=== PATIENT | female | born 1990 | race African-American/Black ===

== ENCOUNTER 2020-08-08 09:52 | Outpatient (CLI) | payer BC, MEDICAID ==
[~2020-08-08] VITALS: Ht 162.6 cm; Wt 72.6 kg
[2020-08-08] MEDS ORDERED: PREN-55 MT (10:52)
== END 2020-08-08 13:40 | disposition home or self-care (01) ==
LOC: L&DPROCDR 09:52 → INTOOBSV 10:01 → 8 EST LDRP 10:01 → OBSVTOIN 10:01
PROVIDERS: ADMIT Obstetrics & Gynecology; ATTEND Obstetrics & Gynecology
DX: O42.92 Full-term premature rupture of membranes, unspecified as to length of time between rupture and onset of labor (principal); Z3A.40 40 weeks gestation of pregnancy
CPT/HCPCS: 59025; 76815; 76818; G0378; 99281

== ENCOUNTER 2023-03-03 19:07 | Inpatient (IN) | payer BC, MEDICAID ==
[~2023-03-03] VITALS: Ht 162.6 cm; Wt 80.7 kg
[2023-03-03] MEDS ORDERED: CARBOPROST TROMETHAMINE 250 MCG/ML AMPUL IM PRN (21:45)
[2023-03-03] MEDS ORDERED: RHO(D) IMMUNE GLOBULIN 300 MCG/SYR IM ONE (21:45)
[2023-03-03] MEDS ORDERED: LIDOCAINE HCL 1% 20ML VIAL (Pyxis) INJ INFIL SCH (21:45)
[2023-03-03] MEDS ORDERED: BUTORPHANOL TARTRATE 2 MG/ML VIAL IV PRN (21:45)
[2023-03-03] MEDS ORDERED: METHYLERGONOVINE MALEATE 0.2 MG/ML IM PRN (21:45)
[2023-03-03] MEDS ORDERED: RHO(D) IMMUNE GLOBULIN 300 MCG/SYR IM PRN (21:45)
[2023-03-03] MEDS ORDERED: NALOXONE HCL 0.4 MG/ML 1ML VIAL IM PRN (21:45)
[2023-03-03] MEDS ORDERED: MISOPROSTOL 100MCG TABLET VG SCH (21:45)
[2023-03-03 22:10] LABS: CLARITY URINE CLOUDY (CLEAR); COLOR URINE YELLOW (YELLOW); KETONES URINE NEGATIVE (NEGATIVE); LEUKOCYTE ESTERASE URINE 3+ (NEGATIVE); NITRITE URINE NEGATIVE (NEGATIVE); OCCULT BLOOD URINE NEGATIVE (NEGATIVE); PH URINE 6.5 (4.5-8.0); PROTEIN URINE NEGATIVE (NEGATIVE); SPECIFIC GRAVITY URINE 1.012 (1.005-1.030)
[2023-03-03 22:14] LABS: BASOPHILS % 0.9 % (0.0-2.0); EOSINOPHILS % 1.7 % (0.0-5.0); HEMATOCRIT. 35.8 % (36.0-48.0); HEMOGLOBIN. 11.9 g/dL (12.0-16.0); LYMPHOCYTES % 32.7 % (20.0-50.0); MEAN CORPUSCULAR HEMOGLOBIN 24.6 pg (28.0-32.0); MEAN CORPUSCULAR VOLUME 73.7 fL (81.0-99.0); MEAN PLATELET VOLUME 10.5 fl (7.4-10.4); MONOCYTES % 9.3 % (2.0-8.0); NEUTROPHILS % 55.4 % (40.0-76.0); PLATELET 193 x1000/uL (130-400); RED BLOOD CELL COUNT 4.86 mill/uL (4.2-5.4); RED CELL DISTRIBUTION WIDTH 16.2 % (11.6-14.6)
[2023-03-03 22:22] LABS: *AMPHETAMINES SCREEN URINE NEGATIVE (NEGATIVE); *BARBITURATES SCREEN URINE NEGATIVE (NEGATIVE); *BENZODIAZEPINES SCREEN URINE NEGATIVE (NEGATIVE); *COCAINE SCREEN URINE NEGATIVE (NEGATIVE); CANNABINOID URINE SCREEN NEGATIVE (NEGATIVE); METHADONE URINE SCREEN NEGATIVE (NEGATIVE); OPIATES URINE SCREEN NEGATIVE (NEGATIVE); PHENCYCLIDINE URINE SCREEN NEGATIVE (NEGATIVE)
[2023-03-03] MEDS: OXYTOCIN 30 UNITS/500ML NS PMX 500 ML IV SCH (22:23)
[2023-03-03 22:27] LABS: INR 0.9; PARTIAL THROMBOPLASTIN TIME 27.5 sec (23.4-31.0); PROTHROMBIN TIME 9.3 sec (9.6-11.0)
[2023-03-03] MEDS: LACTATED RINGERS 1,000 ML IV SCH (22:30)
[2023-03-03 23:12] LABS: CHLORIDE 108 mEq/L (98-107)
[2023-03-04] MEDS: LACTATED RINGERS 1,000 ML IV SCH ×2 (04:25→09:58)
[2023-03-04] MEDS ORDERED: GLYCERIN/WITCH HAZEL LEAF MEDICATED PAD TOP PRN (16:00)
[2023-03-04] MEDS ORDERED: HEMORRHOIDAL SUPP PR PRN (16:00)
[2023-03-04] MEDS ORDERED: METHYLERGONOVINE MALEATE 0.2 MG/ML IM PRN (16:00)
[2023-03-04] MEDS ORDERED: IBUPROFEN 400MG TABLET PO PRN (16:00)
[2023-03-04] MEDS ORDERED: BENZOCAINE/LANOLIN/ALOE VERA SPRAY TOP PRN (16:00)
[2023-03-04] MEDS ORDERED: BISACODYL 10MG SUPP PR PRN (16:00)
[2023-03-04] MEDS ORDERED: OXYTOCIN 30 UNITS/500ML NS PMX 500 ML IV SCH (16:00)
[2023-03-04] MEDS ORDERED: LANOLIN OINT 7GM TUBE TOP PRN (16:00)
[2023-03-04] MEDS ORDERED: ACETAMINOPHEN WITH CODEINE 300/30MG TABLET PO PRN (16:00)
[2023-03-04] MEDS ORDERED: DIPHENHYDRAMINE 25MG CAPSULE PO PRN (16:00)
[2023-03-04] MEDS ORDERED: RHO(D) IMMUNE GLOBULIN 300 MCG/SYR IM PRN (16:00)
[2023-03-04] MEDS ORDERED: IBUPROFEN 800MG TABLET PO PRN (16:00)
[2023-03-04] MEDS: OXYTOCIN 30 UNITS/500ML NS PMX 500 ML IV SCH (16:16)
[2023-03-04 18:32] VITALS: BP 101/59
[2023-03-04 19:30] VITALS: BP 102/57
[2023-03-04] MEDS: SIMETHICONE 80MG TABLET CHEW PO SCH ×2 (21:00→21:01)
[2023-03-04] MEDS: MAGNESIUM/ALUMINUM HYDROXIDE/SIMETHICONE 30ML UDC PO SCH (21:00)
[2023-03-04] MEDS: DOCUSATE SODIUM 100MG CAPSULE PO SCH ×2 (21:00→21:01)
[2023-03-05 04:00] VITALS: BP 95/49
[2023-03-05 07:30] VITALS: BP 99/59
[2023-03-05] MEDS: FERROUS SULFATE 325MG TABLET PO SCH (08:21)
[2023-03-05] MEDS: PRENATAL VIT/FE FUMARATE/FA TABLET PO SCH (08:21)
[2023-03-05] MEDS: SIMETHICONE 80MG TABLET CHEW PO SCH ×2 (08:21→21:26)
[2023-03-05] MEDS: MAGNESIUM/ALUMINUM HYDROXIDE/SIMETHICONE 30ML UDC PO SCH ×2 (08:21→21:27)
[2023-03-05 08:29] LABS: BASOPHILS % 0.2 % (0.0-2.0); EOSINOPHILS % 0.5 % (0.0-5.0); HEMATOCRIT. 31.9 % (36.0-48.0); HEMOGLOBIN. 10.8 g/dL (12.0-16.0); MEAN CORPUSCULAR HEMOGLOBIN 24.5 pg (28.0-32.0); MEAN CORPUSCULAR VOLUME 72.5 fL (81.0-99.0); MONOCYTES % 7.5 % (2.0-8.0); NEUTROPHILS % 74.8 % (40.0-76.0); PLATELET 185 x1000/uL (130-400); RED CELL DISTRIBUTION WIDTH 16.4 % (11.6-14.6)
[2023-03-05 17:00] VITALS: BP 110/77
[2023-03-05 20:00] VITALS: BP 112/76
[2023-03-05] MEDS: DOCUSATE SODIUM 100MG CAPSULE PO SCH (21:27)
[2023-03-06 04:00] VITALS: BP 103/52
[2023-03-06 07:20] VITALS: BP 94/47
[2023-03-06] MEDS: FERROUS SULFATE 325MG TABLET PO SCH (08:26)
[2023-03-06] MEDS: MAGNESIUM/ALUMINUM HYDROXIDE/SIMETHICONE 30ML UDC PO SCH (08:26)
[2023-03-06] MEDS: PRENATAL VIT/FE FUMARATE/FA TABLET PO SCH (08:26)
== END 2023-03-06 13:00 | disposition home or self-care (01) | DRG 805 ==
LOC: 8 EST LDRP 19:07 → OBSVTOIN 19:07 → 8EST 03-04 18:30
PROVIDERS: ADMIT Obstetrics & Gynecology; ATTEND Obstetrics & Gynecology
PROC: 10E0XZZ Delivery of Products of Conception, External Approach (ICD-10-PCS; principal; 2023-03-04)
DX: O48.0 Post-term pregnancy (principal); O75.3 Other infection during labor; Z37.0 Single live birth; N30.90 Cystitis, unspecified without hematuria; Z3A.40 40 weeks gestation of pregnancy
CPT/HCPCS: 36415; 76805; 80053; 80305; 81003; 84550; 85025; 85384; 86592; 86703; 86850; 86900; 87106; 87340; 99281; G0378; J2590